=== PATIENT | male | born 1985 | race Caucasian/White ===

== ENCOUNTER 2021-02-14 15:00 | Outpatient (RCR) | payer BC ==
[~2021-02-14 15:00] MED LIST: DCS100C PO; HCT25T PO; HYDR-3454 PO; PROP40TA5 PO
== END 2021-05-15 | disposition home or self-care (01) ==
LOC: CARD 15:00
PROVIDERS: ATTEND Nurse Practitioner Family
DX: R00.2 Palpitations (principal); Z87.898 Personal history of other specified conditions
CPT/HCPCS: 93225; 93226

== ENCOUNTER 2023-06-04 08:27 | Day surgery (SDC) | payer BC ==
[~2023-06-04] VITALS: Ht 175.2 cm; Wt 122.7 kg
[~2023-06-04 08:27] MED LIST changes: +ATOR10TA66 PO; +CHOL10007 PO; +CHOL200059 PO; +HYDR25TA4 PO
[2023-06-04] MEDS ORDERED: LACTATED RINGERS 1,000 ML 1,000 ML IV STA (08:33)
--- NOTE | 2023-06-04 08:42 | Progress Note-Pre Operative ---
Pre-Operative Progress Note Date of Available H&P: May 22, 2023 Date H&P Reviewed: Jun 04, 2023 Time H&P Reviewed: 08:36 History & Physical: H&P Reviewed, Patient Examed, No changes noted Pre-Operative Diagnosis: Hematochezia, Chronic Gastritis JO ANN RODRIGUEZ DO Jun 04, 2023 08:42
[2023-06-04] MEDS ORDERED: HURRICAINE EXT TUBE (BENZOCAINE) XX PRN (08:45)
[2023-06-04 09:25] VITALS: BP 125/85
[2023-06-04] MEDS ORDERED: MIDAZOLAM INJ 2 MG/2 ML VIAL ONE (09:54)
--- NOTE | 2023-06-04 10:24 | Progress Note-Post Operative ---
Post-Operative Progess Note Surgeon (s)/Chocolate Production Machine Operator (s) Surgeon JO ANN RODRIGUEZ DO Chocolate Production Machine Operator: Zeke Blandon, MSIII Pre-Operative Diagnosis Hematochezia, Chronic Gastritis Post-Operative Diagnosis Gastritis Hiatal hernia Colon polyp int hemorrhoids Anal fissure Procedure & Operative Findings Date of Procedure 06/04/23 Procedure Performed/Findings EGD with biopsy Colonoscopy with cold biopsy PROCEDURE NOTE: After informed consent was obtained, the patient was brought to the endoscopy suite, placed in bed in left lateral decubitus position. He was administered IV sedation by the SOC ANALYST who then monitored vitals the entire time, heart rate, blood pressure and pulse ox and the scope was inserted down the mouth through the esophagus into the stomach. On the way down, noted some mild esophagitis, took a picture, pushed into the stomach, pushed past the antrum into the duodenum. Duodenum looked good. Pulled back and did a biopsy of antrum, then retroflexed the scope, saw hiatal hernia, took a picture of this and then pulled the scope into the GE junction, took another picture of the hiatal hernia and then did a biopsy of the GE junction. Pushed the scope back into the stomach, suctioned all the air out of the stomach. At this point pulled the scope up the esophagus and out the mouth. Switched camera, switched gloves, went down below and started the colonoscopy. Pushed all the way to about 130 cm and pushed into the cecum, took a picture of appendiceal orifice and noted the ileocecal valve. Then slowly withdrew the scope insufflating to look circumferentially at the hopper starting in the cecum, up the ascending colon to the hepatic flexure, then down the transverse colon. I saw a small flat polyp and was able to remove it with cold biopsy. Continued to the splenic flexure, into the descending colon down into the sigmoid and then into the rectal vault. I retroflexed the scope and took a picture of the internal hemorrhoids. On the way out I everted the anal canal and saw an anal fissure. I also saw some mild colitis in the colon, but I think this was prep artifact. The patient tolerated the procedure and he recovered in the endoscopy suite. Recommended for repeat colonoscopy in 5 years Anesthesia Type IV sedation by SOC ANALYST Estimated Blood Loss Estimated blood loss (mL): scant Specimens/Packing Specimens Removed duodenal bx antral bx Body of stomach bx GE jxn bx colon polypectomy with cold biopsy JO ANN RODRIGUEZ DO Jun 04, 2023 10:24
[2023-06-04 10:25] VITALS: BP 150/81
--- NOTE | 2023-06-04 10:26 | Endoscopy Discharge Instruct ---
Endo Procedure/Findings Findings 1.: Gastritis 2.: Hiatal Hernia 3.: Polyp 4.: Internal Hemorrhoids, Other Findings (anal fissure) Discharge Instructions - Activity: You might feel a little sleepy until tomorrow. This is due to the medicine you received to relax you. Until tomorrow, you should: NOT drive a car, operate machinery or power tools. NOT drink any alcoholic beverages. NOT make any important decisions or sign importortant papers. Do not return to work until tomorrow, unless otherwise instructed. Resume previous activities tomorrow. Diet: Start by taking liquids. If you tolerate liquids, advance to solid food. 1.: EGD in 3 years 2.: Colonscopy in 5 years Notify Physician - If you experience excessive bleeding, unusual abdominal pain, fever, or chest pa in, contact your doctor immediately. Follow-Up: Other Follow up in my office in one week JO ANN RODRIGUEZ DO Jun 04, 2023 10:26
[2023-06-04 10:40] VITALS: BP 153/88
[2023-06-04 10:50] VITALS: BP 153/88
--- NOTE | 2023-06-04 11:31 | Anesthesia-General Post-Op ---
MAC Patient Condition Mental Status/LOC: Same as Preop Cardiovascular: Satisfactory Nausea/Vomiting: Absent Respiratory: Satisfactory Pain: Controlled Complications: Absent Post Op Complications Complications None Follow Up Care/Instructions Patient Instructions None needed. Anesthesiology Discharge Order Discharge Order Patient is doing well, no complaints, stable vital signs, no apparent adverse anesthesia problems. No complications reported per nursing. LEON CANTRELL CRNA Jun 04, 2023 11:31
== END 2023-06-04 11:00 | disposition home or self-care (01) ==
LOC: ENDO 08:27
PROVIDERS: ATTEND Surgery
DX: K29.50 Unspecified chronic gastritis without bleeding (principal); K63.5 Polyp of colon; K64.8 Other hemorrhoids; K60.2 Anal fissure, unspecified; K52.9 Noninfective gastroenteritis and colitis, unspecified; K20.90 Esophagitis, unspecified without bleeding; K31.89 Other diseases of stomach and duodenum; K25.9 Gastric ulcer, unspecified as acute or chronic, without hemorrhage or perforation; F17.210 Nicotine dependence, cigarettes, uncomplicated; E66.9 Obesity, unspecified; Z68.39 Body mass index [BMI] 39.0-39.9, adult